=== PATIENT | male | born 1970 | race Two or more races ===

== ENCOUNTER 2018-01-11 13:49 | Outpatient (CLI) | payer OTHER | END 2018-01-11 13:56 | disposition home or self-care (01) | LOC: RAD 501 13:49 | DX: M25.562 Pain in left knee (principal) ==

== ENCOUNTER 2018-07-13 13:45 | Emergency (ER) | payer OTHER ==
[~2018-07-13] VITALS: Ht 175.3 cm; Wt 77.1 kg
== END 2018-07-13 14:56 | disposition home or self-care (01) ==
LOC: ER 13:45
DX: R04.0 Epistaxis (principal)

== ENCOUNTER 2019-04-30 12:08 | Emergency (ER) | payer OTHER ==
[~2019-04-30] VITALS: Ht 180.3 cm; Wt 86.2 kg
== END 2019-04-30 13:36 | disposition home or self-care (01) ==
LOC: ER 12:08
DX: S00.33XA Contusion of nose, initial encounter (principal); W18.09XA Striking against other object with subsequent fall, initial encounter; Y93.18 Activity, surfing, windsurfing and boogie boarding; Y92.832 Beach as the place of occurrence of the external cause; Y99.8 Other external cause status

== ENCOUNTER 2020-09-04 12:31 | Emergency (ER) | payer OTHER ==
[~2020-09-04] VITALS: Ht 180.3 cm; Wt 81.6 kg
[2020-09-04] MEDS ORDERED: SINGULAIR10 MG PO (18:13)
[2020-09-04] MEDS ORDERED: PROMETH-CODEIN 65 ML PO (18:13)
[2020-09-04] MEDS ORDERED: TESSALON PERLE100 M1 PO (18:13)
== END 2020-09-04 18:22 | disposition home or self-care (01) ==
LOC: ER 12:31
DX: J40 Bronchitis, not specified as acute or chronic (principal); R05 Cough

== ENCOUNTER → 2023-11-05 | Emergency (ER) | payer OTHER ==
[~2023-11-05] VITALS: Ht 180.3 cm; Wt 79.4 kg
[~2023-11-05] MED LIST: CEFTRIAXONE SODIUM 2,000 MG VIAL ONE; PROMETH-CODEIN 65 ML PO; SINGULAIR10 MG PO; TESSALON PERLE100 M1 PO
== END | disposition left against medical advice (07) ==
LOC: ER 21:06
DX: Z53.21 Procedure and treatment not carried out due to patient leaving prior to being seen by health care provider (principal)